=== PATIENT | male | born 2000 | race Caucasian/White ===

== ENCOUNTER 2021-07-14 10:04 | Emergency (ER) | payer OTHER ==
[~2021-07-14] VITALS: Ht 188 cm; Wt 95.8 kg
--- NOTE | ~2021-07-14 | EKG ---
[facility] [address] [facility] [address] [place], [place] [address] Draft EK completed, results pending confirmation PATIENT NAME: RONDAREUBEN Electrocardiogram DATE OF : 89 PHYSICIAN: PRELIMINARY REPORT #: [id number] REPORT IS CONFIDENTIAL AND NOT TO BE RELEASED WITHOUT AUTHORIZATION
[2021-07-14] MEDS ORDERED: ASPIRIN325 MG PO (10:48)
--- OUTSIDE RECORDS SUMMARY | 2021-07-14 12:52 | XMS ---
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 ERaymon VISIT COUNT (12 MO.) 1 Rodrigo Wallace Stuart [address] [place] [address] JOE Long TOTAL 3 NOTE: Visits indicate total known visits. ED/UCC VISIT TRACKING (12 MO.) 07/14/2021 10:07 [facility] TYPE: Emergency COMPLAINT: - CHEST PAIN, DIZZINESS, SOB, FATIGUE 06/07/2021 21:00 Rodrigo [facility] OR TYPE: Emergency DIAGNOSES: - Left Arm Numbness - Altered Mental Status - Dehydration - Palpitations 01/22/2021 09:54 [facility] TYPE: Emergency COMPLAINT: - CHEST PAIN, COUGH DIAGNOSES: - Other specified symptoms and signs involving the circulatory and respiratory systems - Acute upper respiratory infection, unspecified INPATIENT VISIT TRACKING (12 MO.) No inpatient visits to display in this time frame [email or web address]
== END 2021-07-14 13:00 | disposition home or self-care (01) ==
LOC: ED 10:04
DX: R00.2 Palpitations (principal); Z86.16 Personal history of COVID-19
CPT/HCPCS: 71045; 80053; 83690; 83735; 84443; 84484; 85025; 93005; 93010; 99285-25